=== PATIENT | female | born 1985 | race African-American/Black ===

== ENCOUNTER 2017-11-14 17:28 | Emergency (ER) | payer OTHER ==
[~2017-11-14] VITALS: Ht 162.6 cm; Wt 59.2 kg
[~2017-11-14 17:28] MED LIST: ACIDOPHILU4 PO; APAP PO; BIOTIN FORTE3 MG PO; FLEXERIL PO; FLUARIX QUADRIV1 INJ IM; HYCODAN1 ML OR; IRON PO; IRON325 MG OR; LACTULOSE PO; LORTAB 5 OR; METAFIBER PO; METAMUCIL0.52 G1; MULIT-VITAMI PO; MULT VITAMI1 PO; MULTIVITAMI1 OR; MULTIVITAMIN; NAPROSYN500 MG OR; ORTHO TRI-CYCLEN LO OR; OXYCOD PO; PREVACID30 M1 OR; REGLAN10 MG OR; STOOL SOFTEN1 TAB; ULTRAM50 M1 OR; ULTRAM50 M1 PO; VITAMI18; ZITHROMAX250 MG OR; [UNRECOGNIZED DRUG - OTHER]
[2017-11-14] MEDS ORDERED: MINOCYCLINE XX (17:46)
[2017-11-14] MEDS ORDERED: AUGMENTIN875TAB PO (18:07)
[2017-11-14 19:05] VITALS: BP 120/70
== END 2017-11-14 19:05 | disposition home or self-care (01) | DRG 605 ==
LOC: ED 17:28
DX: S31.815A Open bite of right buttock, initial encounter (principal); W54.0XXA Bitten by dog, initial encounter; Y93.89 Activity, other specified; Y92.009 Unspecified place in unspecified non-institutional (private) residence as the place of occurrence of the external cause; Y99.0 Civilian activity done for income or pay

== ENCOUNTER 2018-10-17 14:14 | Emergency (ER) | payer OTHER ==
[~2018-10-17] VITALS: Ht 162.6 cm; Wt 60.0 kg
[~2018-10-17 14:14] MED LIST changes: +AUGMENTIN875TAB PO; +MINOCYCLINE XX
[2018-10-17] MEDS ORDERED: VITAMI17 PO (15:20)
[2018-10-17] MEDS ORDERED: VITAMIN D5000 UNIT PO (15:21)
[2018-10-17] MEDS ORDERED: DOXYCYCL HYC100 MG PO (15:22)
[2018-10-17] MEDS ORDERED: FERR SULFATE325 MG PO (15:24)
[2018-10-17] MEDS ORDERED: TAM75CAP PO (16:47)
[2018-10-17 17:55] VITALS: BP 110/71
== END 2018-10-17 17:55 | disposition home or self-care (01) | DRG 153 ==
LOC: ED 14:14
DX: J11.1 Influenza due to unidentified influenza virus with other respiratory manifestations (principal); K58.9 Irritable bowel syndrome, unspecified